=== PATIENT | male | born 1980 | race Caucasian/White ===

== ENCOUNTER 2024-01-03 10:07 | Outpatient (CLI) | payer BC, SELFPAY ==
--- NOTE | 2024-01-03 11:01 | W.ANESCHARGE ---
Anesthesia Charges Start Date/Time Anesthesia Start Date: 01/03/24 Anesthesia Start Time: 11:35 Stop Date/Time Anesthesia Stop Date: 01/03/24 Anesthesia Stop Time: 11:57
--- NOTE | 2024-01-03 11:57 | W.ANESCHARGE ---
Anesthesia Charges Start Date/Time Anesthesia Start Date: 01/03/24 Anesthesia Start Time: 11:35 Stop Date/Time Anesthesia Stop Date: 01/03/24 Anesthesia Stop Time: 11:57
== END 2024-01-03 10:08 | disposition home or self-care (01) ==
PROVIDERS: PCP Physician Assistant; Visit Provider Internal Medicine Gastroenterology
DX: Z12.11 Encounter for screening for malignant neoplasm of colon (principal); K63.5 Polyp of colon; K62.1 Rectal polyp
CPT/HCPCS: 00811; 45385; 88305; J2704